=== PATIENT | male | born 1965 | race Caucasian/White ===

== ENCOUNTER → 2024-07-15 08:20 | Outpatient (REF) | payer OTHER, SELFPAY | LOC: HWRCS 08:20 | PROVIDERS: ATTENDING PHYSICIAN Nurse Practitioner; FAMILY PHYSICIAN Family Medicine | DX: R00.1 Bradycardia, unspecified (principal); I10 Essential (primary) hypertension; E78.00 Pure hypercholesterolemia, unspecified; I71.21 Aneurysm of the ascending aorta, without rupture | CPT/HCPCS: 93306 ==

== ENCOUNTER → 2025-04-07 20:52 | Emergency (ER) | payer OTHER, SELFPAY ==
[2025-04-07 21:03] VITALS: BP 148/89
[2025-04-07 21:31] LABS: Hematocrit 49.0 % (39.0-52.0); Hemoglobin 17.3 g/dL (13.0-18.0); Mean Corp Hgb Conc. 35.3 g/dL (33.0-37.0); Mean Corpuscular Volume 88.3 fL (80.0-94.0); Nucleated Red Blood Cells % 0 % (-); Platelet Count 241 10^3/uL (130-400); Red Cell Dist. Width 12.0 % (11.5-14.5)
[2025-04-07 21:50] LABS: ALT (SGPT) 31 U/L (0-50); AST (SGOT) 29 U/L (17-59); Albumin 5.0 g/dl (3.5-5.0); Alkaline Phosphatase 77 U/L (38-126); Blood Urea Nitrogen 25 mg/dl (9-20); Calcium 10.1 mg/dl (8.4-10.2); Carbon Dioxide 27 mmol/L (22-30); Chloride 102 mmol/L (98-107); Glucose 95 mg/dl (70-99); Potassium 4.5 mmol/L (3.5-5.1); Sodium 139 mmol/L (135-145); Total Protein 7.9 g/dl (6.3-8.2); eGFR > 60.00
[2025-04-07 22:09] LABS: Troponin I < 0.012 ng/ml
== END ==
LOC: EMR 20:52
PROVIDERS: Emergency Medicine
DX: R07.89 Other chest pain (principal); R68.84 Jaw pain
CPT/HCPCS: 80053; 84484; 85025; 93005

== ENCOUNTER → 2025-06-26 09:18 | Outpatient (REF) | payer OTHER, SELFPAY | LOC: HWRCS 09:18 | PROVIDERS: ATTENDING PHYSICIAN Nurse Practitioner; FAMILY PHYSICIAN Family Medicine | DX: I71.21 Aneurysm of the ascending aorta, without rupture (principal) | CPT/HCPCS: 93306 ==